=== PATIENT | male | born 1935 | race Caucasian/White ===

== ENCOUNTER 2016-09-28 09:36 | Emergency (ER) | payer MEDICARE ==
[~2016-09-28] VITALS: Ht 177.8 cm; Wt 80.7 kg
[~2016-09-28 09:36] MED LIST: ASPI-973 PO; BETA1TAB19 PO; CARV12.5 PO; CHOL200025 PO; CLOP75TA3 PO; CYAN500 PO; FOLI0.8T PO; FUR20 PO; IPRA15SP NASAL; LOSA50TA37 PO; ROSU40TA PO
[2016-09-28 09:44] VITALS: BP 79/49; PULSE 83; RESP 27; O2SAT 96
[2016-09-28] MEDS ORDERED: 0.9% Sodium Chloride 1,000 ML IV ONE (10:03)
--- NOTE | 2016-09-28 10:33 | DRSVH ---
PROCEDURE: X-RAY CHEST ONE VIEW, PORTABLE ([id number]) INDICATIONS: 81 year-old male with shortness of breath, on antibiotics for pneumonia. TECHNIQUE: One view of the chest was acquired. COMPARISON: [facility], CR, XR CHEST 1VW (PORTABLE), 09/09/2016, 20:18. [facility], CR, XR CHEST 1VW (PORTABLE), 09/05/2016, 1:12. [facility], CR, XR CHEST 1VW (PO RTABLE), 09/04/2015, 22:17. FINDINGS: Surgical changes and devices: Patient is status post median sternotomy and right shoulder arthroplast y as before. Lungs and pleura: Trace bibasilar pleural effusions are now present. No pneumothorax. Lungs are clark r. Mediastinum: Mediastinal contours appear normal. Mild cardiomegaly is unchanged. There is aortic at herosclerosis. Bones and chest wall: No suspicious bony lesions. Overlying soft tissues appear unremarkable. IMPRESSION: Mild cardiomegaly as before. New trace bibasilar pleural effusions are of uncertain etiol ogy. Dictated by: Ridge Jimenez M.D. on 09/28/2016 at 10:31 Approved by: Ridge Jimenez M.D. on 09/28/2016 at 10:31
[2016-09-28 10:39] VITALS: BP 100/42; PULSE 81; RESP 20; O2SAT 95
[2016-09-28 10:44] LABS: BASOPHILS % (AUTO) 0.1 % (0-3); EOSINOPHILS % (AUTO) 0.1 % (0-5); MONOCYTES % (AUTO) 10.1 % (4-12); Mean Corpuscular Hemoglobin 28.7 pg (27.0-35.0); Mean Corpuscular Volume 90.4 fL (81-100); NEUTROPHILS % (AUTO) 81.1 % (40-74); Platelet Count 165 bil/L (150-400)
--- NOTE | 2016-09-28 10:49 | ED.REPORT ---
HPI-Dyspnea / Wheezing Date of Service Sep 28, 2016 ED Provider: Matt Wei DO Mr. Alcantara is a very pleasant 80-year-old male with a past medical history non -Hodgkin's lymphoma (in remission), TIA, CAD status post CABG, aortic valve replacement, HTN, HLD, recent hospitalization for bacteremia,pneumonia and encephalopathy sent to emergency department from urgent care today. Patient was seen at for SOB 2 months with symptomatic increased. Patient states he has become increasingly short of breath having to sleep sitting upright with decrease in activity tolerance. Patient hospitalized approximately [address] [facility] being discharge 09/13/2016 diagnosis of H. influenzae bacteremia, pneumonia, anemia, suspected acute on chronic systolic CHF (echo 09/05/2016 showed EF 40-45). Imaging during this hospitalization showed acute interstitial edematous pancreatitis, moderate splenomegaly of uncertain etiology, 3.6 cm abdominal aortic aneurysm and groundglass opacity suggestive of early pneumonia. He was discharged with Augmentin. Patient hospitalized at [facility] 08/28/2016 for acute encephalopathy, hypotension with fevers. At that time blood cultures were negative. Imaging showed a lesion of the right lung. Nursing Notes Stated Complaint: SHORTNESS OF BREATH Chief Complaint: Respiratory Distress Nursing Notes Reviewed: Yes Allergies: Coded Allergies: Sulfa (Sulfonamide Antibiotics) (Verified Allergy, Mild, rash, 09/10/16) Scheduled Aspirin (Aspirin) 81 Mg Tablet 81 MG PO DAILY Carvedilol (Coreg) 12.5 Mg Tablet 12.5 MG PO BID Cholecalciferol (Vitamin D3) (Vitamin D3) 2,000 Unit Tablet 2,000 UNIT PO DAILY Clopidogrel Bisulfate (Plavix) 75 Mg Tablet 75 MG PO DAILY Cyanocobalamin (Vitamin B12) 500 Mcg Tablet 1,000 MCG PO QPM Folic Acid (Folic Acid) 0.8 Mg Tablet 0.8 MG PO QPM Furosemide (Furosemide) 20 Mg Tab 20 MG PO dailyx5/days Ipratropium [place] (Ipratropium [place] 0.06% Nasal) 15 Ml [place] 2 SPRAY NASAL DAILY "2 sprays three times in the morning" Losartan Potassium (Losartan Potassium) 50 Mg Tablet 50 MG PO DAILY Rosuvastatin Calcium (Crestor) 40 Mg Tablet 40 MG PO HS Vit A/Vit C/Vit E/Zinc/Copper (Preservision Areds Tablet) 1 Each Tablet 1 EACH PO BID General Time Seen by MD: :45 Chief Complaint Congestive heart failure Past Medical History Past Medical History Aortic stenois, mitral stenosis Extranodule marginal zone lymphona, 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, being followed by oncology, diagnosed November 2014, non-malignant after biopsy in July 2015 Chronic anemia Sleep apnea Restless leg syndrome Mild MR CAD Peripheral vascular disease TIA History of atrial flutter status post at least one cardioversion, not on anticoagulation Reports: Hyperlipidemia, Hypertension Past Surgical History L5-S1 herniated disc Surgical History AAA repair-abdominal aortic aneurysmorrhaphy with aortobifemoral bypass graft, extensive left femoral atherectomy and profundoplasty with superficial femoral artery angioplasty in 2008 Bilateral shoulder surgery T aortic valve replacement 09/2015 4 vessel CABG-harvested veins from bilateral forearms and bilateral legs. Cholecystectomy in 1999 Right-sided hernia repair Reports: CABG Smoking History Former Smoker Social History Alcohol Use: Denies alcohol use Other Social History: Good social support, , Local resident Ambulatory Status Independent Review of Systems REVIEW OF SYSTEMS Constitutional: Denies Chills, Fever, Sweats, Weakness Eyes: Denies Blurred Vision, Pain, Redness, Vision Changes ENT: Denies Dysphagia, Ear Pain, Hoarseness, Nasal Congestion, Nose Discharge, Throat Pain Neck: Denies Mass, Pain, Swelling Cardiovascular: Denies Chest Pain, Edema, Irregular Heart Rate, Palpitations, Rapid Heart Rate. Endorses SOB on Exertion, SOB while laying flat Respiratory: Denies Cough, Cough with bloody sputum, endorses SOB with Exertion , Shortness of Breath. Gastrointestinal: Denies Abdominal Pain, Black tarry stools, Bright red blood in stool, Change in Appetite, Constipation, Diarrhea, Heartburn, Nausea, Vomiting Genitourinary: Denies No burning or pain with urination Musculoskeletal: Denies Ankle Pain, Back Pain, Knee Pain, Neck Pain, Shoulder Pain Skin: Reports: Denies Itching, Lesions, Rash Neurological: Denies Change in LOC, Change in Speech, Confusion, Difficulty Walking, Dizziness, Double Vision, Drooping Mouth, Incoordination, Localized Weakness, Numbness, Seizures, Somnolence, Tremors, Vertigo Endocrine: Denies Abnormal Hair Growth, Excessive Thirst, Intolerant to Cold, Intolerant to Heat, Urinating Frequently, Weight Gain Hematologic: Denies Abnormal Bleeding, Bruising Lymphatic: Denies Adenopathy. Physical Exam General: No acute distress, well-developed, well-nourished, appropriately interactive HEENT: Normocephalic, atraumatic. External ears without defect. Pupils equal, round, and reactive to light and accommodation. Pale conjunctiva, no lid lag. Oropharynx free of erythema with moist mucosa. Neck: Supple with full range of motion. No jugular venous distension. No bruits. No lymphadenopathy or thyromegaly. Cardiovascular: Regular rate and rhythm with no murmurs, rubs, or gallops appreciated Pulmonary: Clear to auscultation bilaterally with no crackles, wheezes, or rhonchi. Normal respiratory effort with no use of accessory muscles. Abdomen: Bowel tones present. Soft, nontender, nondistended. No hepatosplenomegaly or masses appreciated. Extremities: No clubbing, cyanosis, edema, or lymphadenopathy appreciated. Skin: Normal temperature, turgor, and texture; no rash, ulcers, or subcutaneous nodules appreciated. Neurological: Cranial nerves grossly intact. Normal muscle strength, tone, and bulk. Reflexes, coordination, and sensory function within normal limits. No known gait impairment. Psychiatric: Normal mood and affect. Alert and oriented to person, place, and time. Initial Vital Signs Vital Signs (First) Date Time Temp Pulse Resp B/P Pulse Ox O2 Delivery O2 Flow Rate FiO2 09/28/16 09:44 36.1 83 27 79/49 96 09/28/16 10:39 Room Air Interpretation & Diagnostics X-RAY CHEST ONE VIEW, PORTABLE IMPRESSION: Mild cardiomegaly as before. New trace bibasilar pleural effusions are of uncertain etiology. Dictated by: Ridge Jimenez M.D. on 09/28/2016 at 10:31 Lab Results Interpretation Result Diagram: 09/28/16 1030 09/28/16 1030 Test 09/28/16 10:30 White Blood Count 7.2th/mm3 (3.8-10.1) Red Blood Count 2.51mil/mm3 (4.40-5.80) Hemoglobin 7.2g/dL (13.8-17.2) Hematocrit 22.7% (41.0-50.0) Mean Corpuscular Volume 90.4fL (81-100) Mean Corpuscular Hemoglobin 28.7pg (27.0-35.0) Mean Corpuscular Hemoglobin Concent 31.7% (32.0-37.0) Red Cell Distribution Width 14.2% (12.3-15.4) Platelet Count 165bil/L (150-400) Neutrophils (%) (Auto) 81.1% (40-74) Lymphocytes (%) (Auto) 8.5% (14-46) Monocytes (%) (Auto) 10.1% (4-12) Eosinophils (%) (Auto) 0.1% (0-5) Basophils (%) (Auto) 0.1% (0-3) Sodium Level 138mEq/L (134-144) Potassium Level 4.2mEq/L (3.5-5.2) Chloride Level 104mEq/L (97-108) Carbon Dioxide Level 21mmol/L (18-29) Blood Urea Nitrogen 20mg/dL (8-27) Creatinine 1.10mg/dL (0.76-1.27) Estimat Glomerular Filtration Rate 69mL/min (>59) Glucose Level 140mg/dL (60-99) Lactic Acid Level 1.4mmol/L (0.4-2.0) Calcium Level 8.3mg/dL (8.5-10.1) Total Bilirubin 0.5mg/dL (0.0-1.2) Aspartate Amino Transf (AST/SGOT) 16U/L (0-50) Alanine Aminotransferase (ALT/SGPT) 23U/L (0-44) Alkaline Phosphatase 87U/L (25-160) Troponin T 0.020ug/L (0.0-0.011) Pro-B-Type Natriuretic Peptide 9943pg/mL (0-486) Total Protein 5.7g/dL (6.4-8.4) Albumin 2.9g/dL (3.4-5.0) ECG Interpretation ECG Interpretation: Sinus rhythm. IVCD, possible right bundle branch block, LVH with secondary repolarization abnormality. Interpreted by resident physician Re-Eval/Medical Decision Med Decision/Clinical Course Attending note: I saw and personally evaluated this patient. Shortness of breath and hypotension, this is likely multifactorial, may represent congestive heart failure associated with symptomatic anemia. No obvious infectious source however given his recent hospitalization with normal CBCs at that time 2 g of Rocephin were given after blood cultures were obtained. Patient was initially mildly hypotensive though after a small fluid bolus and initiation of a blood transfusion in the ER and this has normalized. He will be transferred due to bed capacity. On arrival patient was hypotensive with a blood pressure, at one point mid 79/ 49 With 1 L fluid resuscitation and blood pressure did rise to 100/42. Chest x-ray showed cardiomegaly as seen in previous imaging as well as new trace bibasilar pleural effusions are of uncertain etiology. BMP had raised to 10,000 from a value 2 weeks ago of 4000. An patient's H&H was 7.2/22.7. Stool guaiac was negative. Patient typed and crossed, at time of dictation Pt receiving first unit of blood. Patient's white counts unremarkable and he remained afebrile though there is still concern for pneumonia and/or bacteremia as he has a very recent history. He did complete his antibiotic course as an outpatient. Lactic acid within normal limits, procalcitonin pending at time of dictation. Blood cultures pending, Pt received ceftriaxone in ED. Last echo from 09/05/2016 showed EF of 40-45%. Throughout ED visit patient remained asymptomatic. Sleeping peacefully. Hemodynamically he remained stable with an MAP remaining above 65 after 1 L fluid administered. Patient admitted request for telemetry monitoring overnight secondary to acute CHF exacerbation with anemia of unknown cause, admitting physician Dr. Mcneal declines admission at this time secondary to no available PCC beds at [facility] Re-Evaluation/Progress : )( Re-Eval Resp / Chest: Breath sounds normal, No wheezing Discharge & Departure Impression: Primary Impression: Congestive heart failure Additional Impression: Symptomatic anemia Disposition: Transfer, Acute Care Facility Discharge Condition All VS Reviewed: Yes Condition: Stable Referrals: NOPCP (PCP) Crit Care Except Billable Proc Time Spent: 30-74 minutes Services Performed: Patient management by me, Time spent at bedside, Reviewing test results Critical Care Notes: See MDM, ED transfusion SIRISHA DAVIS DO Sep 28, 2016 10:31 Matt Wei DO Sep 28, 2016 14:16
[2016-09-28 11:07] LABS: TROPONIN T 0.02 ug/L (0.0-0.011)
[2016-09-28 12:47] VITALS: BP 102/44; PULSE 72; O2SAT 97
[2016-09-28] MEDS ORDERED: 0.9% Sodium Chloride 500 ML ONE (12:56)
[2016-09-28] MEDS ORDERED: cefTRIAXone Inj 2,000 MG in IV Premix 1 EACH IV ONE (13:05)
[2016-09-28 14:18] VITALS: BP 121/55; PULSE 77; RESP 17; O2SAT 100
[2016-09-28 14:40] VITALS: BP 121/55; PULSE 77; RESP 17; O2SAT 100
== END 2016-09-28 15:53 | disposition short-term general hospital (02) ==
LOC: SED 09:36 → EDBD 09:36 → SED 14:40
DX: I11.0 Hypertensive heart disease with heart failure (principal); I50.9 Heart failure, unspecified; D64.9 Anemia, unspecified; I25.10 Atherosclerotic heart disease of native coronary artery without angina pectoris; E78.5 Hyperlipidemia, unspecified; Z86.73 Personal history of transient ischemic attack (TIA), and cerebral infarction without residual deficits; Z95.1 Presence of aortocoronary bypass graft; Z95.4 Presence of other heart-valve replacement; Z79.82 Long term (current) use of aspirin; Z87.891 Personal history of nicotine dependence; Z88.2 Allergy status to sulfonamides
CPT/HCPCS: 36415; 36430; 71010; 80053; 82308; 83605; 83880; 84484; 85025; 86922; 87040; 93005; 96360; 96361; 99291; G0463; J7030; P9021

== ENCOUNTER 2016-10-02 03:47 | Inpatient (IN) | payer MEDICARE ==
[2016-10-02] VITALS (7 sets, daily range): BP systolic 133–167; BP diastolic 68–81; PULSE 82–105; RESP 16–21; O2SAT 96–99
[~2016-10-02] VITALS: Ht 177.8 cm; Wt 82.5 kg
--- NOTE | 2016-10-02 04:14 | ED.REPORT ---
HPI-Dyspnea / Wheezing Date of Service Oct 02, 2016 ED Provider: Andres Orona MD A 81 year old male with an extensive medical history including hypertension, chronic anemia, CAD, peripheral vascular disease, TIA, atrial flutter, and CHF s /p AAA and CABG presents to the ED with intermittent shortness of breath onset five weeks ago. This is exacerbated by exertion. Tonight, the patient's symptoms worsened two hours prior to arrival, waking him up. He denies abdominal pain or hematochezia. The patient has had previous evaluations for these symptoms, including 3x in the ED in the past month, most recently 09/28/15 resulting in admission. Nursing Notes Stated Complaint: SHORTNESS OF BREATH Chief Complaint: Respiratory Distress Nursing Notes Reviewed: Yes Allergies: Coded Allergies: Sulfa (Sulfonamide Antibiotics) (Verified Allergy, Mild, rash, 09/10/16) Scheduled Aspirin (Aspirin) 81 Mg Tablet 81 MG PO DAILY Carvedilol (Coreg) 12.5 Mg Tablet 12.5 MG PO BID Cholecalciferol (Vitamin D3) (Vitamin D3) 2,000 Unit Tablet 2,000 UNIT PO DAILY Clopidogrel Bisulfate (Plavix) 75 Mg Tablet 75 MG PO DAILY Cyanocobalamin (Vitamin B12) 500 Mcg Tablet 1,000 MCG PO QPM Folic Acid (Folic Acid) 0.8 Mg Tablet 0.8 MG PO QPM Furosemide (Furosemide) 20 Mg Tab 20 MG PO dailyx5/days Ipratropium Winn (Ipratropium [place] 0.06% Nasal) 15 Ml [place] 2 SPRAY NASAL DAILY "2 sprays three times in the morning" Losartan Potassium (Losartan Potassium) 50 Mg Tablet 50 MG PO DAILY Rosuvastatin Calcium (Crestor) 40 Mg Tablet 40 MG PO HS Vit A/Vit C/Vit E/Zinc/Copper (Preservision Areds Tablet) 1 Each Tablet 1 EACH PO BID General Time Seen by MD: 03:57 Chief Complaint Shortness of breath Hx Obtained From: Patient Arrived By: Walk-in Sudden in Onset?: Yes Onset Occurred: More than a week ago... (5 weeks) Symptom Duration: Intermittent Location: : None Severity: Current: No pain currently Severity: Maximum: No pain Associated with: Denies: Fever, Vomiting Pertinent Negative: Relieved by nothing Context Related History: Reports: Congestive heart failure, Coronary artery disease Recent Healthcare: Recent doctor visit Similar Sx Previous: Yes Past Medical History Past Medical History Aortic stenois, mitral stenosis Extranodule marginal zone lymphona, 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, being followed by oncology, diagnosed November 2014, non-malignant after biopsy in July 2015 Chronic anemia Sleep apnea Restless leg syndrome Mild MR CAD Peripheral vascular disease TIA History of atrial flutter status post at least one cardioversion, not on anticoagulation CHF Reports: Hyperlipidemia, Hypertension Past Surgical History L5-S1 herniated disc Surgical History AAA repair-abdominal aortic aneurysmorrhaphy with aortobifemoral bypass graft, extensive left femoral atherectomy and profundoplasty with superficial femoral artery angioplasty in 2008 Bilateral shoulder surgery T aortic valve replacement 09/2015 4 vessel CABG-harvested veins from bilateral forearms and bilateral legs. Cholecystectomy in 1999 Right-sided hernia repair Reports: CABG Smoking History Former Smoker Social History Alcohol Use: Denies alcohol use Other Social History: Good social support, , Local resident Ambulatory Status Independent Review of Systems Constitutional: Denies: Fever Respiratory: Reports: Shortness of breath Complete sys rev & neg: except as marked. GI: Denies: Abdominal pain, Hematochezia Physical Exam Initial Vital Signs Vital Signs (First) Date Time Temp Pulse Resp B/P Pulse Ox O2 Delivery O2 Flow Rate FiO2 10/02/16 03:53 36.7 105 21 167/81 99 Room Air Initial VS: Reviewed, Vital signs abnormal Head / Eyes: Atraumatic, Normocephalic ENT: Conjunctiva normal, No scleral icterus Skin: Warm, Dry, No cyanosis Neurologic: Alert, Oriented, Nonfocal Psychiatric: Mood/affect normal, Behavior normal, Normal thought content General/Constitutional: Awake, Alert Neck: Supple, Full range of motion, No JVD Respiratory / Chest: Breath sounds = bilat, No wheezing Resp Distress / Stridor: Positive: Resp distress mild Rales / Rhonchi: Positive: Rales L base, Rales R base Tachypnea Cardiovascular: Heart rate NL, Regular rhythm, Heart sounds NL Lower Ext Edema: Positive: Left 1+ Trace edema right lower extremity Abdomen: Soft, Non-tender Interpretation & Diagnostics Lab Results Interpretation Result Diagram: 10/02/16 0440 10/02/16 0440 Test 10/02/16 04:40 White Blood Count 6.2th/mm3 (3.8-10.1) Red Blood Count 3.74mil/mm3 (4.40-5.80) Hemoglobin 10.7g/dL (13.8-17.2) Hematocrit 32.5% (41.0-50.0) Mean Corpuscular Volume 86.9fL (81-100) Mean Corpuscular Hemoglobin 28.6pg (27.0-35.0) Mean Corpuscular Hemoglobin Concent 32.9% (32.0-37.0) Red Cell Distribution Width 14.6% (12.3-15.4) Platelet Count 177bil/L (150-400) Neutrophils (%) (Auto) 85.0% (40-74) Lymphocytes (%) (Auto) 6.7% (14-46) Monocytes (%) (Auto) 6.3% (4-12) Eosinophils (%) (Auto) 1.8% (0-5) Basophils (%) (Auto) 0% (0-3) D-Dimer 4.3mg/L (<0.50) Sodium Level 140mEq/L (134-144) Potassium Level 4.4mEq/L (3.5-5.2) Chloride Level 102mEq/L (97-108) Carbon Dioxide Level 23mmol/L (18-29) Blood Urea Nitrogen 17mg/dL (8-27) Creatinine 0.75mg/dL (0.76-1.27) Estimat Glomerular Filtration Rate 107mL/min (>59) Glucose Level 130mg/dL (60-99) Calcium Level 8.4mg/dL (8.5-10.1) Magnesium Level 1.6mg/dL (1.6-2.6) Total Bilirubin 0.5mg/dL (0.0-1.2) Aspartate Amino Transf (AST/SGOT) 38U/L (0-50) Alanine Aminotransferase (ALT/SGPT) 52U/L (0-44) Alkaline Phosphatase 90U/L (25-160) Troponin T 0.010ug/L (0.0-0.011) Pro-B-Type Natriuretic Peptide 4955pg/mL (0-486) Total Protein 5.9g/dL (6.4-8.4) Albumin 2.9g/dL (3.4-5.0) Hold Helms Top Tube Received (Received) Lab Results Interpretation: Elevated d-dimer ECG Interpretation ECG Interpretation: Sinus tachycardia rate 94 Atrial premature complexes LBBB Time: 04:38 Interpreted by: ED physician X-Ray Chest Interpretation Chest Xray Interpretation: Increased vascular markings Otherwise normal View: Portable, 1 view Interpretation / Wet Read by: Trina read ED physician Re-Eval/Medical Decision Med Decision/Clinical Course 81-year-old male who has had a fairly complicated cardiac and pulmonary course over the last couple months, presents now with shortness of breath with any activity. Chest x-ray was nonrevealing with a questionable increased density left upper lobe. Labs were unremarkable with the exception of an elevated d- dimer. Chest CT scan PE angiogram was ordered and will be followed up by Dr. Cande Caal who is assuming his care. Source of Hx: Old records Re-Evaluation/Progress : Time of Eval: 06:06 Patient Status: Condition improved Re-Evaluation/Progress Note: Discussed with patient diagnosis and plan for transfer of care to Dr. Wei. Patient agrees with plan for care and all questions were addressed. Counseled Regarding: Diagnosis Discharge & Departure Shift Change Sign-Out Patient Care Transferred: Yes ((Dr. Wei)) Discussed Complaint(s): Yes Laboratory Evaluation: Ordered, not yet done Imaging Studies: Ordered, not yet done Response to Therapy: Improved Impression: Primary Impression: Dyspnea Dyspnea type: shortness of breath Qualified Code: R06.02 - Shortness of breath Discharge Condition All VS Reviewed: Yes Condition: Stable Referrals: NOPCP (PCP) Joshua Ramsay MD Care Transferred to: Dr. Wei Care Transferred at: 06:05 Scribe Attestation Portions of this note were transcribed by Savanna Berg. I, Dr. Orona, personally performed the history, physical exam, and medical decision-making; I reviewed and confirmed the accuracy of the information in the transcribed note. Signed by: Rg Borrego, 10/02/2016, 05:55 copies to: Joshua Ramsay MD, Howard L MD Oct 02, 2016 04:14 SAVANNA BERG Oct 02, 2016 04:23
[2016-10-02 05:10] LABS: BASOPHILS % (AUTO) 0 % (0-3); EOSINOPHILS % (AUTO) 1.8 % (0-5); MONOCYTES % (AUTO) 6.3 % (4-12); Mean Corpuscular Hemoglobin 28.6 pg (27.0-35.0); Mean Corpuscular Volume 86.9 fL (81-100); Platelet Count 177 bil/L (150-400)
[2016-10-02 05:33] LABS: TROPONIN T 0.01 ug/L (0.0-0.011)
[2016-10-02 05:44] LABS: Magnesium 1.6 mg/dL (1.6-2.6)
[2016-10-02] MEDS ORDERED: Piperacillin-Tazo 3.375 Gm Inj 3.375 GM in Dextrose 5% Minibag Plus 50 ML IV ONE (06:20)
[2016-10-02] MEDS ORDERED: levoFLOXacin Inj 750 MG in IV Premix 1 EACH IV ONE (06:20)
[2016-10-02] MEDS ORDERED: Alum-Mag Hydrox-Simeth 30 mL Suspension PO PRN ×3 (06:40→12:35)
[2016-10-02] MEDS ORDERED: Ondansetron 2 mg/mL 2 mL Inj IVPUSH PRN ×2 (06:40→10:35)
--- NOTE | 2016-10-02 07:50 | NUR ---
Admission Pt arrived on [facility] to 3027, A/Ox3, RA, No complains of increased pain at this time. Pt is able to transfer self from stretcher to bed. Oriented to , call light and visiting hours, Call light with in reach, will continue to monitor.
--- NOTE | 2016-10-02 08:09 | DRSVH ---
PROCEDURE: X-RAY CHEST ONE VIEW, PORTABLE ([id number]) INDICATIONS: dyspnea, bibasilar rales TECHNIQUE: One view of the chest was acquired. COMPARISON: 09/28/2016 FINDINGS: Surgical changes and devices: Median sternotomy. AVR. Right shoulder arthroplasty.. Lungs and pleura: Slight blunting of the costophrenic angles laterally appear unchanged, still compat ible with small pleural effusions, no pneumothorax. Lungs show an ill-defined area of infiltrate in the left perihilar region. Probable vertical scarring in the left infrahilar region. Faint density ov erlying the right second anterior rib is unchanged. Mediastinum: Mediastinal contours appear normal. Heart size is normal. Aorta is calcified and tort uous. Bones and chest wall: No suspicious bony lesions. Overlying soft tissues appear unremarkable. IMPRESSION: 1. Probable lingular pneumonia. 2. Postoperative changes. 3. Mild bilateral pleural thickening or small effusions, unchanged. Dictated by: Nolan Jules M.D. on 10/02/2016 at 8:07 Approved by: Nolan Juels M.D. on 10/02/2016 at 8:07
[2016-10-02] MEDS ORDERED: Vancomycin Dose per Pharmacist XX SCH (08:30)
--- NOTE | 2016-10-02 09:42 | DRSVH ---
PROCEDURE: CT ANGIO CHEST PULMONARY EMBOLISM ([id number]) INDICATIONS: short of breath elevated dimer TECHNIQUE: After the administration of intravenous contrast, 2 mm thick sections acquired from the pulmonary api cathi to the posterior costophrenic angles. 3-dimensional maximum intensity projection (MIP) coronal a nd sagittal reformats were then acquired through the thorax. For radiation dose reduction, the follo wing was used: automated exposure control, adjustment of mA and/or kV according to patient size. COMPARISON: [facility], CT, CT ANGIO CHEST PE, 09/05/2016, 3:09. FINDINGS: Image quality: Excellent. Pulmonary arteries: Pulmonary arteries are normal in size, and demonstrate no intraluminal filling d efects to suggest central pulmonary embolism. Lungs and pleura: Patchy air space opacities are present within the bilateral upper lungs, more confl uent on the left. There are small low-density pleural effusions and compressive atelectasis, slightly greater on the right. These are new when compared with the study dated 09/05/16. Mediastinum: Heart size is normal, without pericardial effusion. No mediastinal or hilar adenopathy . Thoracic aorta is normal in caliber and enhancement. Scattered atheromatous calcifications are pre sent within the aortic arch. Esophagus is normal in caliber, without hiatal hernia. Bones and chest wall: No suspicious bony lesions. Right shoulder arthroplasty is grossly intact. Rib s and thoracic spine appear intact throughout. Thyroid gland is unremarkable. No axillary or suprac lavicular adenopathy. Abdomen: Visualized upper abdominal solid organs appear normal in the early arterial phase of enhanc ement. IMPRESSION: 1. No acute pulmonary embolus. 2. Patchy upper lung airspace opacities and small pleural effusions which are new when compared with the study dated 09/05/16 and suggest acute infection or aspiration. Dictated by: Shannon Doherty M.D. on 10/02/2016 at 9:38 Approved by: Shannon Doherty M.D. on 10/02/2016 at 9:38
[2016-10-02] MEDS ORDERED: Polyethylene Glycol (PEG) 17 Gm Powder PO PRN ×2 (10:35→12:35)
[2016-10-02] MEDS ORDERED: 0.9% Sodium Chloride 250 ML ONE (10:58)
[2016-10-02] MEDS ORDERED: Albuterol-Ipratropium 3 mL Inhalation Solution NEB PRN (12:35)
[2016-10-02] MEDS: 0.9% Sodium Chloride 1,000 ML IV SCH ×3 (12:35→14:58)
[2016-10-02] MEDS: Vancomycin Dose per Pharmacist XX SCH (13:00)
[2016-10-02] MEDS ORDERED: Vancomycin Dose per Pharmacist XX ONE (13:01)
--- NOTE | 2016-10-02 14:06 | NUR ---
Evaluation completed. Please go to "Notes" then click on "Assessments and Notes" (bottom left corner of screen). Then select appropriate discipline tab on top of screen.
[2016-10-02] MEDS: Furosemide 10 mg/mL 4 mL Inj IVPUSH SCH (14:59)
--- NOTE | 2016-10-02 15:06 | PCM.CONPHA ---
Subjective Date of Service: Oct 02, 2016 Vancomycin Reason for Pharmacy Consult: Vancomycin Dosing Assessment/Plan Assessment/Plan Patient is an 81 y.o. male receiving vancomycin for HCAP. Concurrent abx include : levofloxacin and zosyn. WBC count is 6.2 and the patient is febrile. Patient is 82 kg, 70 inches tall with a SCr of 0.75 mg/dL-- estimated CrCl of ~ 93 mL/min. Based on patient parameters vancomycin will be loaded with 1500mg then dosed at 1250mg q12h with a target trough of 15-20 mcg/mL. Trough will be drawn prior to the 4th dose on 10/03 @ 2230. Pharmacy will follow daily and adjust as appropriate. Thank you for the consult in the care of this patient. Jermain Horton PharmD Oct 02, 2016 15:06
--- NOTE | 2016-10-02 15:08 | PCM.HPCARD ---
Subjective Date of service Oct 02, 2016 Primary Provider: Admitting Physician: Zak Guillermo MD Primary Care Physician: Nopjc Attending Physician: Zak Guillermo MD Admit Status: From the Emergency Department Chief Complaint: Chief Complaint: SOB History of Present Illness: The patient has a history of previous three-vessel bypass graft surgery and TAVR aortic valve replacement in addition to bifemoral bypass graft surgery for abdominal aortic aneurysm and history of lymphoma. Patient has been hospitalized or seen in the emergency room quite frequently over the past 1 month. On August 28 the patient was admitted at [facility] for acute encephalopathy with confusion and chills. He was found to have a fever up to 103. Patient had an extensive evaluation with multiple imaging modalities the head and neck demonstrating significant extracerebral and intracerebral atherosclerotic plaque but no critical blockages. The patient also was found to have a left lower pleural effusion. It was thought that his confusion could have been related to hyperperfusion from his cardiovascular medications. It has also been thought that this could have been secondary to a viral encephalopathy. Hence, his medications were restarted as an outpatient. The patient was then admitted at [facility] on September 05 for fever and confusion. Patient had elevated CRP of unclear cause an anemia and thrombocytopenia. The patient had an echocardiogram which showed moderately reduced LV ejection fraction around 40-45 % with bioprosthetic aortic valve replacement which was new in comparison to his previous echocardiogram. The gradients through the prosthetic aortic valve were within normal range and there is no obvious of valvular vegetation although this cannot be completely excluded due to limited visualization. There was also evidence for possible grade 2 LV diastolic dysfunction consistent with increased LV left ventricular end-diastolic pressures. His RV systolic pressures were estimated around 38 mmHg and the presence of moderately enlarged left atrium. The patient headache complete heart catheterization back in early August 2015 which showed severe [place] coronary disease but patent grafts. Details of the report are explained. 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 Patient's currently not on warfarin. Eventually his hospitalization in 09/05/16 revealed no evidence of definite cause for her viral illness and confusion. He was eventually discharged without any significant changes. Please note that his blood cultures were negative on the first 2 set up but eventually blood cultures were repeated just prior to discharge which are positive for Haemophilus parainfluenza he was eventually treated on a subsequent hospitalization with intravenous antibiotics. His hospitalization on 09/09/16 was complicated with possible systolic congestive heart failure. His pro BNP was noticeably increased and patient has had a chronic orthopnea over the past 1 -2 months. He has also complained of increased lower extremity edema. Apparently he was given one or 2 dosages of intravenous Lasix on September 12. He was not discharged on furosemide. He had persistent lower extremity edema after discharge and he was recently seen by Dr. Bland at our cancer clinic for his history of lymphoma. He was started on Lasix for 5 days at 20 mg once a day. Patient does not recall if he noticed any significant difference with this PND. Was also mention in Dr. Bland's note that he did not believe the patient had any evidence of recurrent non-Hodgkin's lymphoma based on a recent CT scan of the chest, abdomen, and pelvis dated back in 09/10/16. He is also had a lumbar puncture during one of these recent hospitalizations which came back negative. The patient was seen again on September 28 mention of acute CHF exacerbation by ER physician. Request for admission was made but apparently there are no beds available and patient was discharged home. The patient comes back today with intermittent episodes of shortness of breath on exertion as well as history of what sounds like PND. Patient had an angiography CT chest to rule out pulmonary embolism which was negative but showed evidence for patchy upper lung airspace opacities and small pleural effusions which were new comparison to a previous CT chest on 09/05/16. The patient's proBNP is still quite elevated around 5000. Currently the patient appears to be comfortable and is not in any acute distress. Review of Systems General: Reports: Energy (decreased) Fatigue Eyes: Reports: Problem or recent change in eyes Ears, Nose, Mouth & Throat: Reports: Any hearing loss Respiratory: Reports: Orthopnea or PND Cardiovascular: Reports: Atrial Fibrillation Denies: Chest Discomfort Gastrointestinal: Denies: Abdominal discomfort Ulcers or GI blood loss Vomiting Genitourinary: Denies: Symptoms of BPH Musculoskeletal: Denies: Joint swelling Significant joint or back problems Neurological: Reports: Any history of stroke/TIA symptoms (as per previous CT/ MRI) Psychiatric: Denies: Anxiety Endocrine: Denies: Heat or cold intolerance Integumentary: Denies: Any change in hair or nails Hematologic/Immunologic: Reports: Recent history of anemia PMH Past Medical History 1. Coronary artery disease 2. History of TIA 3. History aortic stenosis with aortic regurgitation, status post TAVR 4. Peripheral arterial disease with status post bifemoral bypass surgery secondary to AAA 5. History of non-Hodgkin's lymphoma resolved 6. Hypertension 7. Cerebrovascular disease 8. Dyslipidemia 9. History of paroxysmal atrial flutter 10. History of bilateral carotid endarterectomy Home Medications Medications prior to today: 1. Aspirin 81 mg once a day 2. Carvedilol 12.5 mg twice a day 3. Clopidogrel 75 mg was then 4. Crestor 40 mg once a day 5. Folic acid 1000 g daily excellent 6. Losartan 50 mg once a day 7. PreserVision 2 tablets daily 8. Supplements, methyl B-12 1000 g once every evening 9. Viagra 50 mg 1 tablet by oral everyday as needed approximately 1 hour before sexual activity 10. Vitamin B-12 1000 g once a day 12. Vitamin D3 2000 units capsule 1 tablet daily Allergies: Coded Allergies: Sulfa (Sulfonamide Antibiotics) (Verified Allergy, Mild, rash, 10/02/16) Social History Hx Alcohol Use: No (quit drinking Aug 2016)Hx Substance Use: NoHx Tobacco Use : Yes Smoking Status: Former Smoker Exam Vital Signs Vital Sign - Last Date Time Temp Pulse Resp B/P Pulse Ox O2 Delivery O2 Flow Rate FiO2 10/02/16 13:08 97 10/02/16 07:52 37.1 19 136/76 97 Room Air General: Pleasant Cooperative Skin: Warm & dry to touch Head: Normocephalic No tenderness Eye: EOMS intact No arcus or xanthelasma Neck: JVP elevated (9 cm) Ears, Nose & Throat: Ears no gross abnormalities Nose no gross abnormalities Chest: Other (clear to auscultation bilaterally in the mid and upper aguiar but mild crackles at the base) Cardiac: Regular rhythm Normal S1 and S2 (2/6 systolic ejection murmur) Pulses: Carotid pulse (right side decreased left-sided normal) Abdomen: Abdomen soft No bruits Extremities: Warm w/o deformities,erythema noted Edema Neurological: Alert & oriented Psychological: Affect & interaction appropriate Memory grossly intact Lab and Diagnostics Labs CBC Test 10/02/16 04:40 White Blood Count 6.2th/mm3 (3.8-10.1) Red Blood Count 3.74mil/mm3 (4.40-5.80) Hemoglobin 10.7g/dL (13.8-17.2) Hematocrit 32.5% (41.0-50.0) Mean Corpuscular Volume 86.9fL (81-100) Mean Corpuscular Hemoglobin 28.6pg (27.0-35.0) Mean Corpuscular Hemoglobin Concent 32.9% (32.0-37.0) Red Cell Distribution Width 14.6% (12.3-15.4) Platelet Count 177bil/L (150-400) Neutrophils (%) (Auto) 85.0% (40-74) Lymphocytes (%) (Auto) 6.7% (14-46) Monocytes (%) (Auto) 6.3% (4-12) Eosinophils (%) (Auto) 1.8% (0-5) Basophils (%) (Auto) 0% (0-3) CMP Test 10/02/16 04:40 Sodium Level 140mEq/L Potassium Level 4.4mEq/L Chloride Level 102mEq/L Carbon Dioxide Level 23mmol/L Blood Urea Nitrogen 17mg/dL Creatinine 0.75mg/dL Estimat Glomerular Filtration Rate 107mL/min Glucose Level 130mg/dL Calcium Level 8.4mg/dL Magnesium Level 1.6mg/dL Total Bilirubin 0.5mg/dL Aspartate Amino Transf (AST/SGOT) 38U/L Alanine Aminotransferase (ALT/SGPT) 52U/L Alkaline Phosphatase 90U/L Troponin T 0.010ug/L Pro-B-Type Natriuretic Peptide 4955pg/mL Total Protein 5.9g/dL Albumin 2.9g/dL Procalcitonin 0.77ng/mL Hold Helms Top Tube Received Result Diagram: 10/02/1643910/02/16439 X-Rays, CTs and MRIs PROCEDURE: CT ANGIO CHEST PULMONARY EMBOLISM ([id number]) INDICATIONS: short of breath elevated dimer TECHNIQUE: After the administration of intravenous contrast, 2 mm thick sections acquired from the pulmonary apices to the posterior costophrenic angles. 3-dimensional maximum intensity projection (MIP) coronal and sagittal reformats were then acquired through the thorax. For radiation dose reduction, the following was used: automated exposure control, adjustment of mA and/or kV according to patient size. COMPARISON: [facility], CT, CT ANGIO CHEST PE, 09/05/2016, 3:09. FINDINGS: Image quality: Excellent. Pulmonary arteries: Pulmonary arteries are normal in size, and demonstrate no intraluminal filling defects to suggest central pulmonary embolism. Lungs and pleura: Patchy air space opacities are present within the bilateral upper lungs, more confluent on the left. There are small low-density pleural effusions and compressive atelectasis, slightly greater on the right. These are new when compared with the study dated 09/05/16. Mediastinum: Heart size is normal, without pericardial effusion. No mediastinal or hilar adenopathy. Thoracic aorta is normal in caliber and enhancement. Scattered atheromatous calcifications are present within the aortic arch. Esophagus is normal in caliber, without hiatal hernia. Bones and chest wall: No suspicious bony lesions. Right shoulder arthroplasty is grossly intact. Ribs and thoracic spine appear intact throughout. Thyroid gland is unremarkable. No axillary or supraclavicular adenopathy. Abdomen: Visualized upper abdominal solid organs appear normal in the early arterial phase of enhancement. IMPRESSION: 1. No acute pulmonary embolus. 2. Patchy upper lung airspace opacities and small pleural effusions which are new when compared with the study dated 09/05/16 and suggest acute infection or aspiration. PROCEDURE: X-RAY CHEST ONE VIEW, PORTABLE ([id number]) INDICATIONS: dyspnea, bibasilar rales TECHNIQUE: One view of the chest was acquired. COMPARISON: 09/28/2016 FINDINGS: Surgical changes and devices: Median sternotomy. AVR. Right shoulder arthroplasty.. Lungs and pleura: Slight blunting of the costophrenic angles laterally appear unchanged, still compatible with small pleural effusions, no pneumothorax. Lungs show an ill-defined area of infiltrate in the left perihilar region. Probable vertical scarring in the left infrahilar region. Faint density overlying the right second anterior rib is unchanged. Mediastinum: Mediastinal contours appear normal. Heart size is normal. Aorta is calcified and tortuous. Bones and chest wall: No suspicious bony lesions. Overlying soft tissues appear unremarkable. IMPRESSION: 1. Probable lingular pneumonia. 2. Postoperative changes. 3. Mild bilateral pleural thickening or small effusions, unchanged 12-lead ECG Sinus rhythm with no acute ST changes. Assessment & Plan Problems: (1) Acute on chronic combined systolic (congestive) and diastolic (congestive) heart failure Plan: This unfortunate man with multiple comorbidities which makes it quite difficult to decipher the etiology of his multiple complaints. However I think that he might be having some component of increased left ventricular end- diastolic pressures or acute on chronic diastolic dysfunction. I think this is also exacerbated by his community acquired pneumonia. He was also recently positive for Haemophilus parainfluenza. He has had a one-month history of orthopnea as well as increased lower extremity edema. His echocardiogram suggests possible grade 2 LV diastolic dysfunction. Given evidence of think it be worthwhile to start him on intravenous Lasix on a daily basis and see how he responds. If he responds favorably consider starting him on oral Lasix plus or minus spironolactone. Status: Chronic ICD Code: I50.43 (2) Pneumonia due to Haemophilus influenzae Plan: Part of his shortness breath also could be contributed from his pneumonia. He is currently on broad-spectrum antibiotics which is currently being managed by the hospitalist team. Hopefully with concurrent intravenous Lasix and intravenous antibiotics his symptoms will improve over the next couple days. Status: Acute ICD Code: J14 (3) Atrial flutter Plan: Given his history of stroke and past history of atrial flutter, ideally this patient should be on warfarin or NOAC, given his history of recent severe anemia and blood transfusion, we will defer anticoagulation for now. For now just consider full dose aspirin. If his H/H remains stable then one can consider this an outpatient. Status: Chronic ICD Code: I48.92 (4) Ischemic stroke of frontal lobe Status: Resolved ICD Code: I63.9 (5) PAD (peripheral artery disease) Status: Chronic ICD Code: I73.9 (6) Coronary artery disease Qualifiers: Coronary Disease-Associated Artery/Lesion type: [place] artery [place] vs. transplanted heart: [place] heart Associated angina: without angina Qualified Code: I25.10 - Atherosclerotic heart disease of [place] coronary artery without angina pectoris Status: Chronic ICD Code: I25.10 (7) Dyslipidemia Status: Chronic ICD Code: E78.5 (8) S/P aorto-bifemoral bypass surgery Status: Chronic ICD Code: Z95.828 (9) S/p bilateral carotid endarterectomy Status: Chronic ICD Code: Z98.89 (10) Cerebrovascular disease Status: Chronic ICD Code: I67.9 (11) S/P TAVR (transcatheter aortic valve replacement) Status: Chronic ICD Code: Z95.2 (12) S/P CABG x 3 Status: Chronic ICD Code: Z95.1 Time spent 80 minutes Surya Martin MD Oct 02, 2016 15:07
[2016-10-02] MEDS: Piperacillin-Tazo 3.375 Gm Inj 3.375 GM in Dextrose 5% Minibag Plus 50 ML IV SCH (16:45)
[2016-10-02 21:06] LABS: APPEARANCE,URINE CLEAR (CLEAR,HAZY); COLOR,URINE YELLOW (YELLOW); OCCULT BLOOD,URINE MODERATE (NEGATIVE); UROBILINOGEN,URINE NORMAL (NORMAL)
--- NOTE | 2016-10-02 21:16 | PCM.HPMED ---
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 Patient reports that he was admitted to [facility] on 09/28/16 and was discharged on 09/29/16. He reports that at that time, he initially presented to [facility] but was transferred to [facility] for transfusion.Pt reports that during his hospitalization at [place], he received 4 units of blood because his anemia was so severe. He reports that last night he became short of breath in the middle of the night, he states the dyspnea woke him from sleep. Pt notes that after this he went straight to the ER. Pt denies any fevers, chills, headache, vision changes, difficulty swallowing, chest pain, nausea or vomiting, or abdominal pain. Pt also denies dysuria or hematuria.Patient denies any orthopnea, cough, sore throat or myalgias. Pt denies the use of home O2.Pt reports chronic diarrhea, and denies any change in this. Pt reports shortness of breath at rest, that is worsened by activity. Pt denies any sick contacts. CXR in ER demonstrating "Probable lingular pneumonia." and CT in ER demonstrating "Patchy upper lung airspace opacities and small pleural effusions which are new when compared with the study dated 09/05/16 and suggest acute infection or aspiration.". Pt was hypertensive and tachycardic in the ER, but afebrile . Review of Systems: Comprehensive review of systems conducted and was negative except for the pertinent positives listed in history of present illness above. Allergies Coded Allergies: Sulfa (Sulfonamide Antibiotics) (Verified Allergy, Mild, rash, 10/02/16) Home Medications Per discharge note from 09/13/2016 Discharge Medications Amoxicillin/Clav K 875-125 mg (Augmentin 875-125 mg) 1 Each Tablet 1 TABLET PO BID Prescribed by: MELLO PILLAI DO Aspirin (Aspirin) 81 Mg Tablet 81 MG PO DAILY (Reported) Carvedilol (Coreg) 12.5 Mg Tablet 12.5 MG PO BID Prescribed by: MELISSA ALEXANDER MD Cholecalciferol (Vitamin D3) (Vitamin D3) 2,000 Unit Tablet 2,000 UNIT PO DAILY (Reported) Clopidogrel Bisulfate (Plavix) 75 Mg Tablet 75 MG PO DAILY (Reported) Cyanocobalamin (Vitamin B12) 500 Mcg Tablet 1,000 MCG PO QPM (Reported) Folic Acid (Folic Acid) 0.8 Mg Tablet 0.8 MG PO QPM (Reported) Ipratropium [place] (Ipratropium [place] 0.06% Nasal) 15 Ml [place] 2 SPRAY NASAL DAILY (Reported) "2 sprays three times in the morning" Losartan Potassium (Losartan Potassium) 50 Mg Tablet 50 MG PO DAILY (Reported) Rosuvastatin Calcium (Crestor) 40 Mg Tablet 40 MG PO HS (Reported) Vit A/Vit C/Vit E/Zinc/Copper (Preservision Areds Tablet) 1 Each Tablet 1 EACH PO BID (Reported) PMH Aortic stenosis status post TAVR on 10/23/15 in [facility] MR Extranodal marginal zone lymphoma (Dr. Chandler Bland), reportedly stage IV, diagnosed 2001, reportedly now in remission since 10/2013 * Diagnosed in 2001 at which time he presented with pulmonary nodules, pleural effusions, mediastinal and retroperitoneal adenopathy. * Underwent treatment with CVP between 07/2002 and 10/2002 with mixed response * In 10/2003 he underwent second line therapy with fludarabine, mitoxantrone, and Rituxan 4 cycles * CT scan of the chest without contrast on 02/18/16 showed reduction in size of right upper lobe spiculated mass, otherwise punctate nodules in the right middle lobe and lateral aspect of the right middle lobe unchanged, resolution of effusion. 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 Cholecystectomy in 1999 Right-sided hernia repair Family History Mother hypertension Father was reportedly shot and killed at a young age Social History Hx Alcohol Use: Yes (quit drinking Aug 2016,) Hx Substance Use: No Hx Tobacco Use: Yes Smoking Status: Former Smoker Living Arrangement: with Family Exam Vital Signs Vital Sign - Last Date Time Temp Pulse Resp B/P Pulse Ox O2 Delivery O2 Flow Rate FiO2 10/02/16 07:52 37.1 99 19 136/76 97 Room Air Exam General: No acute distress, well-developed, well-nourished, appropriately interactive. Pt is laying supine without supplemental oxygen HEENT: Normocephalic, atraumatic. External ears without defect. Pupils equal, round, and reactive to light and accommodation. Anicteric sclerae, moist conjunctivae. Oropharynx with moist mucosa. Neck: Supple with full range of motion. Cardiovascular: Systolic murmur, Regular rate and rhythm Pulmonary: Clear to auscultation bilaterally with no crackles, wheezes, or rhonchi. Normal respiratory effort with no use of accessory muscles. Abdomen: Bowel tones present. Soft, nontender, nondistended. Extremities: No clubbing, cyanosis appreciated.Trace edema bilateral lower extremities. Skin: Normal temperature, turgor, and texture; no rash, ulcers, or subcutaneous nodules appreciated. Psychiatric: Normal mood and affect. Alert and oriented to person, place, and time. Lab and Diagnostics Result Diagram: 10/02/1643910/02/16439 Cardiac Echo Impressions ECHO FROM 09/05/2016 Interpretation Summary Left ventricular systolic function is moderately reduced with the ejection fraction estimated to be 40-45% with moderate global hypokinesis and severe hypokinesis to akinesis in the proximal inferior and posterior segments that is unchanged from the previous echo although overall contractility appears slightly improved. Left ventricular size is at the upper limits of normal but is somewhat smaller compared to the previous study. Assessment of diastolic parameters suggests a possible pseudonormalization pattern, consistent with elevated filling pressures. The right ventricle is normal in size and function, and is unchanged compared to the previous study. The right ventricular systolic pressure is estimated at 38 mmHg assuming a right atrial pressure of 3 mm Hg, and is likely lower compared to the previous study. The left atrium is moderately dilated and the right atrium is borderline dilated but both atria are unchanged in size since the prior echo exam. There is moderate to severe mitral annular calcification, extending into the subvalvular apparatus and onto the mitral valve leaflets, especially at the base of the anterior leaflet but it opens well and there has been no significant change since the previous study. There is no obvious vegetation seen on the mitral valve but this cannot be entirely excluded due to the dense calcification and generalized thickening of the valve leaflets. There is mild mitral regurgitation that is slightly less prominent compared to the previous study. There is a bioprosthetic aortic valve that is not well visualized but appears to be well-seated and opens well and is new compared to the previous study. The gradients through the prosthetic aortic valve are within the normal range for this type of valve suggesting normal prosthetic aortic valve function. There is no obvious aortic valvular vegetation seen although this cannot be entirely excluded because of the limited visualization of the aortic valve. No aortic regurgitation is present. There is no other significant valvular heart disease, and specifically no vegetations are seen. The ascending aorta and aortic arch are mildly enlarged but likely unchanged compared to the previous study. Assessment & Plan Worsening dyspnea of unclear etiology,present on admission, ongoing -Pt has had multiple hospitalizations over the past month, at multiple facilities' -At this time, unclear cause of the dyspnea.Possible causes include acute exacerbation of CHF due to recent transfusion of multiple units of PRBCs. Other possibility is HCAP, given his multiple admission. Pt also had recent Haemophilus parainfluenza. -We will evaluate the various causes Possible healthcare acquired pneumonia,present on admission, ongoing -Multiple hospitalizations at multiple hospitals -CXR in ER demonstrating "Probable lingular pneumonia." -CT in ER demonstrating "Patchy upper lung airspace opacities and small pleural effusions which are new when compared with the study dated 09/05/16 and suggest acute infection or aspiration." -Does not meet SIRS criteria. -Recent dx of Haemophilus parainfluenza -Vanco, Zosyn and Levaquin ordered to treat -Swallow evaluation ordered to assess for possible aspiration as cause of infection -Pending: Blood and sputum cultures, legionella, strep pneumo, Viral PCR, procalcitonin Possible acute exacerbation of chronic systolic congestive heart failure. present on admission, ongoing -Most recent ECHO done in 08/2016 -BNP elevated at 4995 -Cardiology consulted, and we appreciate their input -Lasix 40mg IV ordered Chronic anemia, present on admission, ongoing -Chronically present -Pt recently received 3 units of PRBCs at [facility] during recent hospitalization -Guiac ordered -Anticoagulation with ASA 325mg -Hold warfarin Chronic atrial flutter,present on admission, ongoing -Hx of TIA -Given anemia, anticoagulation with ASA 325mg Coronary artery disease, chronic and presumed stable -Continue home medications Hypertension, chronic and presumed stable -Continue home medications VTE Mechanical Devices: Intermittant Pneumatic CD Resuscitation Status: CPR: Attempt Resuscitation Attending Statement The patient was seen and examined together with Dr. Kramer on 10/02/2016 and I agree with the history, exam and plan as outlined in the note above. Michelle Kramer DO Oct 02, 2016 11:24 Jeramy Hodge MD Oct 03, 2016 09:25
[2016-10-03] VITALS (8 sets, daily range): BP systolic 129–144; BP diastolic 68–87; PULSE 52–102; RESP 18; O2SAT 98–99
[2016-10-03] MEDS: Piperacillin-Tazo 3.375 Gm Inj 3.375 GM in Dextrose 5% Minibag Plus 50 ML IV SCH ×3 (00:32→18:42)
[2016-10-03] MEDS: 0.9% Sodium Chloride 1,000 ML IV SCH ×3 (02:46→17:52)
[2016-10-03 07:20] LABS: BASOPHILS % (AUTO) 0.4 % (0-3); EOSINOPHILS % (AUTO) 4.5 % (0-5); MONOCYTES % (AUTO) 14.4 % (4-12); Mean Corpuscular Hemoglobin 28.3 pg (27.0-35.0); Mean Corpuscular Volume 87.2 fL (81-100); NEUTROPHILS % (AUTO) 71.4 % (40-74); Platelet Count 151 bil/L (150-400)
--- NOTE | 2016-10-03 07:39 | NUR ---
Uneventful night Pt alert and orientedx3,denies any pain/SOB/N/V/fever/chills, VSS, sleeping overnight.
[2016-10-03] MEDS: levoFLOXacin Inj 750 MG in IV Premix 1 EACH IV SCH (08:27)
[2016-10-03] MEDS: Furosemide 10 mg/mL 4 mL Inj IVPUSH SCH (08:27)
[2016-10-03] MEDS ORDERED: 0.9% Sodium Chloride 250 ML ONE (11:15)
[2016-10-03] MEDS: Vancomycin Dose per Pharmacist XX SCH (11:29)
[2016-10-03] MEDS ORDERED: KCl 40 mEq/D5W 500 mL 40 MEQ in IV Premix 1 EACH IV ONE (13:20)
--- NOTE | 2016-10-03 20:07 | PCM.PNMED ---
Subjective Date of Service Oct 03, 2016 Subjective Pt reports that he is doing well. He states that he has been walking in the halls without any associated shortness of breath. Pt denies any shortness of breath at rest or with exertion. Pt denies any chest pain, fevers, chills, myalgias. Pt denies any nausea or vomiting, and notes chronic diarrhea. Pt denies any concerns or complaints at this time. Pt reports that he is eager to go home soon. Exam Vital Signs Vital Sign - Last Date Time Temp Pulse Resp B/P Pulse Ox O2 Delivery O2 Flow Rate FiO2 10/03/16 18:41 36.6 65 18 132/68 98 Room Air Intake and Output 10/02/16 10/02/16 10/03/16 Cumulative From/Thru 15:00 23:00 07:00 10/02/16 03:53 - 10/03/16 06:39 Intake Total 1844 ml 2158 ml 4002 ml Output Total 500 ml 875 ml 1375 ml Balance 1344 ml 1283 ml 2627 ml Intake Oral 900 ml 820 ml 1720 ml IV Total 944 ml 1338 ml 2282 ml Output Urine Total 500 ml 875 ml 1375 ml # Voids 2 2 # Bowel Movements 0 0 Exam General: No acute distress, well-developed, well-nourished, appropriately interactive. Pt is laying supine without supplemental oxygen HEENT: Normocephalic, atraumatic. External ears without defect. Pupils equal, round, and reactive to light and accommodation. Anicteric sclerae, moist conjunctivae. Oropharynx with moist mucosa. Neck: Supple with full range of motion. Cardiovascular: Systolic murmur, Regular rate and rhythm Pulmonary: Clear to auscultation bilaterally with no crackles, wheezes, or rhonchi. Normal respiratory effort with no use of accessory muscles. Abdomen: Bowel tones present. Soft, nontender, nondistended. Extremities: No clubbing, cyanosis appreciated.Trace edema bilateral lower extremities. Skin: Trace to 1+ pitting edema in bilateral lower extremities. Normal temperature, turgor, and texture Psychiatric: Normal mood and affect. Alert and oriented to person, place, and time. IVs and Medications Medications Reviewed: Medications were reviewed in detail Lab and Diagnostics Result Diagram: 10/03/16 0659 10/03/1659 Cardiac Echo Impressions ECHO FROM 09/05/2016 Interpretation Summary Left ventricular systolic function is moderately reduced with the ejection fraction estimated to be 40-45% with moderate global hypokinesis and severe hypokinesis to akinesis in the proximal inferior and posterior segments that is unchanged from the previous echo although overall contractility appears slightly improved. Left ventricular size is at the upper limits of normal but is somewhat smaller compared to the previous study. Assessment of diastolic parameters suggests a possible pseudonormalization pattern, consistent with elevated filling pressures. The right ventricle is normal in size and function, and is unchanged compared to the previous study. The right ventricular systolic pressure is estimated at 38 mmHg assuming a right atrial pressure of 3 mm Hg, and is likely lower compared to the previous study. The left atrium is moderately dilated and the right atrium is borderline dilated but both atria are unchanged in size since the prior echo exam. There is moderate to severe mitral annular calcification, extending into the subvalvular apparatus and onto the mitral valve leaflets, especially at the base of the anterior leaflet but it opens well and there has been no significant change since the previous study. There is no obvious vegetation seen on the mitral valve but this cannot be entirely excluded due to the dense calcification and generalized thickening of the valve leaflets. There is mild mitral regurgitation that is slightly less prominent compared to the previous study. There is a bioprosthetic aortic valve that is not well visualized but appears to be well-seated and opens well and is new compared to the previous study. The gradients through the prosthetic aortic valve are within the normal range for this type of valve suggesting normal prosthetic aortic valve function. There is no obvious aortic valvular vegetation seen although this cannot be entirely excluded because of the limited visualization of the aortic valve. No aortic regurgitation is present. There is no other significant valvular heart disease, and specifically no vegetations are seen. The ascending aorta and aortic arch are mildly enlarged but likely unchanged compared to the previous study. Assessment & Plan Worsening dyspnea of unclear etiology,present on admission, ongoing -Pt has had multiple hospitalizations over the past month, at multiple facilities' -At this time, unclear cause of the dyspnea.Possible causes include acute exacerbation of CHF due to recent transfusion of multiple units of PRBCs. Other possibility is HCAP, given his multiple admission. Pt also had recent Haemophilus parainfluenza. -We will evaluate the various causes Possible healthcare acquired pneumonia,present on admission, ongoing -Multiple hospitalizations at multiple hospitals -CXR in ER demonstrating "Probable lingular pneumonia." -CT in ER demonstrating "Patchy upper lung airspace opacities and small pleural effusions which are new when compared with the study dated 09/05/16 and suggest acute infection or aspiration." -Does not meet SIRS criteria. -Recent dx of Haemophilus parainfluenza -Vanco, Zosyn and Levaquin, we will continue at this time. -Swallow evaluation ordered to assess for possible aspiration as cause of infection--not yet completed -Pending: sputum cultures -Blood no growth to date, legionella negative, strep pneumo negative, Viral PCRnegative -Procalcitonin 0.48 Possible acute exacerbation of chronic systolic congestive heart failure. present on admission, ongoing -Most recent ECHO done in 08/2016 -BNP elevated at 4995 -Cardiology consulted, and we appreciate their input -Lasix 40mg IV ordered daily Acute hypokalemia, not present on admission, ongoing -IV Potassium 40meq given -Recheck in AM Chronic anemia, present on admission, ongoing -Chronically present -Pt recently received 3 units of PRBCs at [facility] during recent hospitalization -Guiac ordered--not yet done -Anticoagulation with ASA 325mg -Hold warfarin Chronic atrial flutter,present on admission, ongoing -Hx of TIA -Given anemia, anticoagulation with ASA 325mg Coronary artery disease, chronic and presumed stable -Continue home medications Hypertension, chronic and presumed stable -Continue home medications VTE Mechanical Devices: Intermittant Pneumatic CD Resuscitation Status: CPR: Attempt Resuscitation Attending Statement The patient was seen and examined together with Dr. Kramer on 10/03/2016 and I agree with the history, exam and plan as outlined in the note above. Michelle Kramer DO Oct 03, 2016 20:07 Jeramy Hodge MD Oct 04, 2016 11:18
[2016-10-03] MEDS ORDERED: Vancomycin Serum Trough XX ONE (22:30)
[2016-10-04] VITALS (9 sets, daily range): BP systolic 134–146; BP diastolic 79–87; PULSE 56–92; RESP 18–20; O2SAT 96–98
[2016-10-04] MEDS: 0.9% Sodium Chloride 1,000 ML IV SCH ×2 (01:43→14:35)
[2016-10-04] MEDS: Piperacillin-Tazo 3.375 Gm Inj 3.375 GM in Dextrose 5% Minibag Plus 50 ML IV SCH ×2 (02:08→11:11)
--- NOTE | 2016-10-04 05:33 | NUR ---
Uneventful Night Pt slept most of the night getting up to urinate x2-3. Alert and oriented. Uses call light appropriately. Antibiotics infusing through the night.
[2016-10-04 06:56] LABS: BASOPHILS % (AUTO) 0 % (0-3); EOSINOPHILS % (AUTO) 5.7 % (0-5); MONOCYTES % (AUTO) 10.9 % (4-12); Mean Corpuscular Hemoglobin 28.1 pg (27.0-35.0); Mean Corpuscular Volume 87.9 fL (81-100); NEUTROPHILS % (AUTO) 72.9 % (40-74); Platelet Count 181 bil/L (150-400)
[2016-10-04] MEDS: levoFLOXacin Inj 750 MG in IV Premix 1 EACH IV SCH (08:08)
[2016-10-04] MEDS: Furosemide 10 mg/mL 4 mL Inj IVPUSH SCH (08:09)
[2016-10-04] MEDS: Vancomycin Dose per Pharmacist XX SCH (08:30)
--- NOTE | 2016-10-04 08:50 | NUR ---
CHUY signed PHIL Gonzalez
--- NOTE | 2016-10-04 10:15 | PCM.PNCARD ---
Subjective Date of service Oct 04, 2016 Chief Complaint SOB History of Present Illness Feeling much better. No orthopnea. Patient states that he has had significant increase of urine output even though his I/O doesn't reflect that. The following day after receiving his 2nd dose IV Lasix he denies any MARRUFO. He is still receiving IV abx for his pneumonia. Patient states that he is feeling much better and wants to go home. Constitutional: Denies: Chills, Fever ENT: Denies: Ear Pain Eyes: Denies: Blurred Vision Cardiovascular: Denies: Chest Pain, Edema Respiratory: Denies: Cough, SOB with Exertion, Wake up SOB Gastrointestinal: Denies: Abdominal Pain Genitourinary: Denies: No burning or pain with urination Neurological: Denies: Confusion Endocrine: Reports: Blood Glucose Review Exam Vital Signs Vital Sign - Last Date Time Temp Pulse Resp B/P Pulse Ox O2 Delivery O2 Flow Rate FiO2 10/04/16 09:46 36.5 91 20 134/87 96 Room Air Intake and Output 10/03/16 10/03/16 10/04/16 Cumulative From/Thru 15:00 23:00 07:00 10/02/16 03:53 - 10/04/16 06:40 Intake Total 1000 ml 2126 ml 7128 ml Output Total 980 ml 2355 ml Balance 20 ml 2126 ml 4773 ml Intake Oral 1000 ml 400 ml 3120 ml IV Total 1726 ml 4008 ml Output Urine Total 980 ml 2355 ml # Voids 3 5 # Bowel Movements 1 0 1 General: Pleasant Cooperative Skin: Warm & dry to touch Chest: Clear auscultation w/o rales/wheeze Cardiac: Regular rhythm Extremities: Edema (decreasing) Neurological: Alert & oriented Lab and Diagnostics Result Diagram: 10/04/16 0630 10/04/16 0630 Assessment & Plan Problems: (1) Acute on chronic combined systolic (congestive) and diastolic (congestive) heart failure Plan: Feeling much better. Patient could have been fluid overload since he responded promptly with IV diuretics. He is requiring IV K riders as well. If he goes home, I would recommend that he receives Lasix 40 mg po qd and Spirinolactone 12.5 mg once a day. No KCl hopefully will be needed with K sparing diuretic on board. Please give him 2 months supply of both medications without refills. Order BMP in 2 weeks and send copies to Dr. Ramsay. I will inform Dr. Ramsay to see when he can see him at our cardiology clinic. Continue with his other heart medications. Status: Chronic ICD Code: I50.43 (2) Pneumonia due to Haemophilus influenzae Plan: Part of his shortness breath also could be contributed from his pneumonia. He is currently on broad-spectrum antibiotics which is currently being managed by the hospitalist team. Since he is feeling much better, patient wants to go home and he hopes that he can continue with oral antibiotics as an outpatient. Status: Acute ICD Code: J14 (3) Atrial flutter Plan: Given his history of stroke and past history of atrial flutter, ideally this patient should be on warfarin or NOAC, given his history of recent severe anemia and blood transfusion, we will defer anticoagulation for now. For now just consider full dose aspirin. If his H/H remains stable then one can consider this an outpatient. Status: Chronic ICD Code: I48.92 (4) Ischemic stroke of frontal lobe Status: Resolved ICD Code: I63.9 (5) PAD (peripheral artery disease) Status: Chronic ICD Code: I73.9 (6) Coronary artery disease Qualifiers: Coronary Disease-Associated Artery/Lesion type: solomon artery [place] vs. transplanted heart: solomon heart Associated angina: without angina Qualified Code: I25.10 - Atherosclerotic heart disease of solomon coronary artery without angina pectoris Status: Chronic ICD Code: I25.10 (7) Cerebrovascular disease Status: Chronic ICD Code: I67.9 VTE Mechanical Devices: Intermittant Pneumatic CD Resuscitation Status: CPR: Attempt Resuscitation Time spent 20 minutes copies to: Joshua Ramsay MD, Oscar J MD Oct 04, 2016 10:15
--- NOTE | 2016-10-04 10:51 | NUR ---
Social Work: Initial Assessment / Readiness for d/c Data: Pt is a 81 y/o male admitted for HCAP. Pt's PCP is not listed. Pt's insurance is Medicare with [employer] supp. EMR reviewed. Pt discussed in rounds, MD states pt likely to d/c either today or tomorrow. SWITCHBOARD OPERATOR met with pt at bedside, role explained. Pt states that he lives with his spouse in a single story home where he uses no DME. Pt states he drives, has no history of HH or SNF, not LTC or VA benefits, and is not a caregiver for another. Pt reports his is a good support to contact if needed and is also his DPOA, SWITCHBOARD OPERATOR requested a copy for hospital. SWITCHBOARD OPERATOR left contact info and plan on board. No d/c planning needs identified at this time. SWITCHBOARD OPERATOR will continue to follow if needs arise. Assessment: Pt who is independent at baseline. Plan: Pt will d/c home via POV when medically stable, likely today or tomorrow. No d/c planning needs identified at this time. SWITCHBOARD OPERATOR will continue to follow if needs arise. PHIL Gonzalez Addendum: 10/04/16 at 1055 by TOMMIE PIERCE Amended: Links added.
--- NOTE | 2016-10-04 15:00 | PCM.PNMED ---
Subjective Date of Service Oct 04, 2016 Subjective Overnight: No acute events Today: States he feels better than baseline. Denies any SOB at rest or with activity. Has mobilized around halls without SOB, O2 drops. Denies CP. Tolerating po well. Would like to go home. Exam Vital Signs Vital Sign - Last Date Time Temp Pulse Resp B/P Pulse Ox O2 Delivery O2 Flow Rate FiO2 10/04/16 13:24 36.9 56 18 135/84 98 Room Air Intake and Output 10/03/16 10/03/16 10/04/16 Cumulative From/Thru 15:00 23:00 07:00 10/02/16 03:53 - 10/04/16 06:40 Intake Total 1000 ml 2126 ml 7128 ml Output Total 980 ml 2355 ml Balance 20 ml 2126 ml 4773 ml Intake Oral 1000 ml 400 ml 3120 ml IV Total 1726 ml 4008 ml Output Urine Total 980 ml 2355 ml # Voids 3 5 # Bowel Movements 1 0 1 Exam General: No acute distress, well-developed, well-nourished, appropriately interactive. Pt is laying supine without supplemental oxygen HENT: Normocephalic, atraumatic. External ears without defect. Anicteric sclerae , moist conjunctivae. Oropharynx with moist mucosa. Neck: Supple with full range of motion. Cardiovascular: III/ Systolic murmur, Regular rate and rhythm Pulmonary: Clear to auscultation bilaterally with no crackles, wheezes, or rhonchi. Normal respiratory effort with no use of accessory muscles. Abdomen: Bowel tones present. Soft, nontender, nondistended. Extremities: No clubbing, cyanosis appreciated.Resolved edema BLLE Skin: Warm and dry Psychiatric: Normal mood and affect. Alert and oriented to person, place, and time. Neuro: CNII-XII grossly intact; speech normal; facial expressions symmetric Lab and Diagnostics Result Diagram: 10/04/1662910/04/16629 Cardiac Echo Impressions ECHO FROM 09/05/2016 Interpretation Summary Left ventricular systolic function is moderately reduced with the ejection fraction estimated to be 40-45% with moderate global hypokinesis and severe hypokinesis to akinesis in the proximal inferior and posterior segments that is unchanged from the previous echo although overall contractility appears slightly improved. Left ventricular size is at the upper limits of normal but is somewhat smaller compared to the previous study. Assessment of diastolic parameters suggests a possible pseudonormalization pattern, consistent with elevated filling pressures. The right ventricle is normal in size and function, and is unchanged compared to the previous study. The right ventricular systolic pressure is estimated at 38 mmHg assuming a right atrial pressure of 3 mm Hg, and is likely lower compared to the previous study. The left atrium is moderately dilated and the right atrium is borderline dilated but both atria are unchanged in size since the prior echo exam. There is moderate to severe mitral annular calcification, extending into the subvalvular apparatus and onto the mitral valve leaflets, especially at the base of the anterior leaflet but it opens well and there has been no significant change since the previous study. There is no obvious vegetation seen on the mitral valve but this cannot be entirely excluded due to the dense calcification and generalized thickening of the valve leaflets. There is mild mitral regurgitation that is slightly less prominent compared to the previous study. There is a bioprosthetic aortic valve that is not well visualized but appears to be well-seated and opens well and is new compared to the previous study. The gradients through the prosthetic aortic valve are within the normal range for this type of valve suggesting normal prosthetic aortic valve function. There is no obvious aortic valvular vegetation seen although this cannot be entirely excluded because of the limited visualization of the aortic valve. No aortic regurgitation is present. There is no other significant valvular heart disease, and specifically no vegetations are seen. The ascending aorta and aortic arch are mildly enlarged but likely unchanged compared to the previous study. 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 Patient reports that he was admitted to [facility] on 09/28/16 and was discharged on 09/29/16. He reports that at that time, he initially presented to [facility] but was transferred to [facility] for transfusion.Pt reports that during his hospitalization at [place], he received 4 units of blood because his anemia was so severe. Of note, he was recently admitted to [facility] 09/09 for H. parainfluenzae pneumonia and septicemia. - Hospital day 3 Worsening dyspnea of unclear etiology,present on admission, Resolved -Pt has had multiple hospitalizations over the past month, at multiple facilities -At this time, unclear cause of the dyspnea, likely cardiac > infectious. Possible causes include acute exacerbation of CHF due to recent transfusion of multiple units of PRBCs. Other possibility is HCAP, given his multiple admission. Pt also had recent Haemophilus parainfluenza. Possible healthcare acquired pneumonia,present on admission, Under therapy -Multiple hospitalizations at multiple hospitals -CXR in ER demonstrating "Probable lingular pneumonia." -CT in ER demonstrating "Patchy upper lung airspace opacities and small pleural effusions which are new when compared with the study dated 09/05/16 and suggest acute infection or aspiration." -Does not meet SIRS criteria. -Recent dx of Haemophilus parainfluenza -Vanco, Zosyn and Levaquin: Now po; At DC: Levaquin 750mg daily -Swallow evaluation ordered to assess for possible aspiration as cause of infection: No signs aspiration -Blood no growth to date, legionella negative, strep pneumo negative, Viral PCR negative -Procalcitonin in am; downward trending Possible acute exacerbation of chronic systolic congestive heart failure. present on admission, Resolved -Most recent ECHO done in 08/2016 -BNP elevated at 4995 -Cardiology consulted, and we appreciate their input - Rx at DC: Lasix 40mg po daily + spironolactone 12.5mg daily - Give 2 months count; no refills - Write for BMP in 2 weeks, with FU with Dr. Ramsay Acute hypokalemia, not present on admission, ongoing -IV Potassium 40meq given -Recheck in AM - No continuation of KDur at DC; spironolactone therapy initiated Normocytic, normochromic anemia, likely chronic, present on admission, ongoing -Chronically present -Pt recently received 3 units of PRBCs at [facility] during recent hospitalization -Anticoagulation with ASA 325mg; Continue -Hold warfarin - Recommend outpatient work up; colonoscopy Chronic atrial flutter,present on admission, ongoing -Hx of TIA -Given anemia, anticoagulation with ASA 325mg Coronary artery disease, chronic and presumed stable -Continue home medications Hypertension, chronic and presumed stable -Continue home medications - PRN: Fever/antiemetic/bowel/pain - GI: None - DVT: SCDs - Diet: Heart healthy - Code: FULL CODE Dispo: Likely to DC 10/05 in am pending medical stability. Morning labs ordered , including repeat PCT, CBC, BMP. No anticipated needs at this time. Will DC with po abx. Pain Evaluation: Adequate Pain Control GI Prophylaxis: Not indicated VTE Prophylaxis: SCDs VTE Mechanical Devices: Intermittant Pneumatic CD Resuscitation Status: CPR: Attempt Resuscitation Attending Statement The patient was seen and examined together with Dr. Mcmillan on 10/04/2016 and I agree with the history, exam and plan as outlined in the note above. Ailyn Mcmillan DO Oct 04, 2016 15:00 Jeramy Hodge MD Oct 05, 2016 09:18
[2016-10-05 00:40] VITALS: BP 139/80; PULSE 82; RESP 18; O2SAT 96
[2016-10-05 05:39] VITALS: BP 145/78; PULSE 72; RESP 18; O2SAT 97
--- NOTE | 2016-10-05 05:47 | NUR ---
NOC activity Pt has been pleasant and cooperative with care. Denies chest pain, sob, n/v and abd discomfort. VSS, and has been afebrile overnight. HS meds administered as scheduled. Hourly rounding done and pt has slept most of the night.
[2016-10-05 06:10] LABS: BASOPHILS % (AUTO) 0.2 % (0-3); EOSINOPHILS % (AUTO) 7.7 % (0-5); MONOCYTES % (AUTO) 11.4 % (4-12); Mean Corpuscular Hemoglobin 28.2 pg (27.0-35.0); Mean Corpuscular Volume 87.9 fL (81-100); NEUTROPHILS % (AUTO) 66.5 % (40-74); Platelet Count 208 bil/L (150-400)
[2016-10-05 07:09] LABS: Magnesium 1.5 mg/dL (1.6-2.6); Phosphorus 3.7 mg/dL (2.5-4.9)
[2016-10-05] MEDS ORDERED: levoFLOXacin 750 mg Tablet PO SCH (07:30)
[2016-10-05 08:04] VITALS: PULSE 93; RESP 18; O2SAT 94
[2016-10-05 10:00] VITALS: BP 140/92; PULSE 91; RESP 18; O2SAT 97
--- NOTE | 2016-10-05 14:31 | PCM.DIMED ---
Mehdi Small DO 10/05/16 1431: Discharge Instructions Date of Service Oct 05, 2016 Dates of Hospitalization Oct 02, 2016 at 06:54 Discharge Diagnosis Discharge Diagnosis Worsening dyspnea of unclear etiology,present on admission, Resolved -Unclear as to exact cause of your faculty breathing, however it may be related to your recent Haemophilus parainfluenza lung infection and heart failure. Healthcare acquired pneumonia,present on admission, Under therapy -Take Levaquin 750 mg every morning for the next 5 days -Come back if you have any increased difficulty breathing, fevers, chills, excessive diarrhea, Acute exacerbation of chronic systolic congestive heart failure. present on admission, Resolved -Take Lasix 40mg 1 tablet daily + spironolactone 12.5mg half a tablet daily -Please have your blood work done in 2 weeks and follow-up with Dr. Ramsay. -Daily weights, call your primary care provider should your weight increase by more than 5 pounds within 3 days Acute hypokalemia, not present on admission, ongoing -Repeat blood work in 2 weeks as mentioned above Normocytic, normochromic anemia, likely chronic, present on admission, ongoing - You have low red blood cell count. There are many causes to this, gastrointestinal bleeding is a concern. - We recommend that you follow up with your primary care provider and schedule a colonoscopy in the very near future - Stop taking your warfarin - Called her primary care provider or come in to the ED should you notice increasing lightheadedness, or dizziness, or dark tarry stool Chronic atrial flutter,present on admission, ongoing -Continue to take your Aspirin 325mg daily and your Plavix 75 mg pill qd Coronary artery disease, chronic and presumed stable -Continue taking your Crestor 40 mg pill every night. Hypertension, chronic and presumed stable -Continue to take your Crestor Medication Instructions Please see the above instructions Diet Heart Healthy Activity No restrictions Call your provider Fever or Chills, Shortness of breath, Bleeding, Chest pain, Excessive diarrhea Patient Instructions Follow-up with PCP in: 1 week (Please follow -up with Dr. Brady Hernandez) Provider: Joshua Ramsay MD Follow-up in: 2 weeks Jeramy Hodge MD 10/06/16 1003: Mehdi Small DO Oct 05, 2016 14:31 Jeramy Hodge MD Oct 06, 2016 10:03
[2016-10-05] MEDS ORDERED: LEVO750T9 PO (14:41)
[2016-10-05] MEDS ORDERED: SPIR25TA PO (14:41)
[2016-10-05] MEDS ORDERED: FURO40TA4 PO (14:41)
--- NOTE | 2016-10-05 15:32 | NUR ---
Discharge Patient discharge to home with all belongings at 1527. Explained to patient new medications (furosemide, Aldactone, and levofloxacin), when next medications are due and discharge instructions. Dc'd IV intact. Vitals stable. Patient left floor via wheelchair accompanied by ENGINE MAINTENANCE MECHANIC to meet downstairs with no sings of distress.
--- NOTE | 2016-10-05 15:37 | NUR ---
Social Work-discharge: Data:EMR Reviewed. Pt is ready for discharge home today. PT has cleared pt for home no needs. Pt's to provide transport home today. Pt and agreeable to plan. Assessment:Pt who is independent at baseline. Plan:Pt to discharge home today via POV. No discharge needs identified. All updated and agreeable to plan. PHIL Mijares
--- NOTE | 2016-10-05 15:49 | PCM.DC.MED ---
Discharge Summary Date of Service Oct 05, 2016 Dates of Hospitalization Date of Hospital Admission Oct 02, 2016 at 06:54 Date of Discharge: Oct 05, 2016 Providers: Admitting Physician: Zak Guillermo MD Primary Care Physician: Christy Attending Physician: Zak Guillermo MD Diagnosis at Time of Discharge Diagnosis at Time of Discharge Worsening dyspnea of unclear etiology,present on admission, Resolved -Unclear as to exact cause of your faculty breathing, however it may be related to your recent Haemophilus parainfluenza lung infection and heart failure. Healthcare acquired pneumonia,present on admission, Under therapy -Take Levaquin 750 mg every morning for the next 5 days -Come back if you have any increased difficulty breathing, fevers, chills, excessive diarrhea, Acute exacerbation of chronic systolic congestive heart failure. present on admission, Resolved -Take Lasix 40mg 1 tablet daily + spironolactone 12.5mg half a tablet daily -Please have your blood work done in 2 weeks and follow-up with Dr. Ramsay. -Daily weights, call your primary care provider should your weight increase by more than 5 pounds within 3 days Acute hypokalemia, not present on admission, ongoing -Repeat blood work in 2 weeks as mentioned above Normocytic, normochromic anemia, likely chronic, present on admission, ongoing - You have low red blood cell count. There are many causes to this, gastrointestinal bleeding is a concern. - We recommend that you follow up with your primary care provider and schedule a colonoscopy in the very near future - Stop taking your warfarin - Called her primary care provider or come in to the ED should you notice increasing lightheadedness, or dizziness, or dark tarry stool Chronic atrial flutter,present on admission, ongoing -Continue to take your Aspirin 325mg daily and your Plavix 75 mg pill qd Coronary artery disease, chronic and presumed stable -Continue taking your Crestor 40 mg pill every night. Hypertension, chronic and presumed stable -Continue to take your Crestor Procedures XRay, CTs & MRIs PROCEDURE: CT ANGIO CHEST PULMONARY EMBOLISM ([id number]) INDICATIONS: short of breath elevated dimer IMPRESSION: 1. No acute pulmonary embolus. 2. Patchy upper lung airspace opacities and small pleural effusions which are new when compared with the study dated 09/05/16 and suggest acute infection or aspiration. Dictated by: Shannon Doherty M.D. on 10/02/2016 at 9:38 Cardiac Echo Impression ECHO FROM 09/05/2016 Interpretation Summary Left ventricular systolic function is moderately reduced with the ejection fraction estimated to be 40-45% with moderate global hypokinesis and severe hypokinesis to akinesis in the proximal inferior and posterior segments that is unchanged from the previous echo although overall contractility appears slightly improved. Left ventricular size is at the upper limits of normal but is somewhat smaller compared to the previous study. Assessment of diastolic parameters suggests a possible pseudonormalization pattern, consistent with elevated filling pressures. The right ventricle is normal in size and function, and is unchanged compared to the previous study. The right ventricular systolic pressure is estimated at 38 mmHg assuming a right atrial pressure of 3 mm Hg, and is likely lower compared to the previous study. The left atrium is moderately dilated and the right atrium is borderline dilated but both atria are unchanged in size since the prior echo exam. There is moderate to severe mitral annular calcification, extending into the subvalvular apparatus and onto the mitral valve leaflets, especially at the base of the anterior leaflet but it opens well and there has been no significant change since the previous study. There is no obvious vegetation seen on the mitral valve but this cannot be entirely excluded due to the dense calcification and generalized thickening of the valve leaflets. There is mild mitral regurgitation that is slightly less prominent compared to the previous study. There is a bioprosthetic aortic valve that is not well visualized but appears to be well-seated and opens well and is new compared to the previous study. The gradients through the prosthetic aortic valve are within the normal range for this type of valve suggesting normal prosthetic aortic valve function. There is no obvious aortic valvular vegetation seen although this cannot be entirely excluded because of the limited visualization of the aortic valve. No aortic regurgitation is present. There is no other significant valvular heart disease, and specifically no vegetations are seen. The ascending aorta and aortic arch are mildly enlarged but likely unchanged compared to the previous study. Other Diagnostics Labs on 10/05/2016 prior to discharge WBC 4.3, Hgb 9.6, HCT 29.9, platelet 208, MCV 87.9. Na 145, K3.6, CL 106, CO2 26, BUN 11, creatinine 0.78, glucose 115 Brief History Feeling much better. No orthopnea. Patient states that he has had significant increase of urine output even though his I/O doesn't reflect that. The following day after receiving his 2nd dose IV Lasix he denies any MARRUFO. He is still receiving IV abx for his pneumonia. Patient states that he is feeling much better and wants to go home. Hospital Course 80yom with MHx significant for CAD s/p 3 vessel CABG, status post TAVR, CHF, hypertension, hyperlipidemia, and recently hospitalized one separate occasions for anemia and Haemophilus parainfluenza presented to the ED-[facility] with shortness of breath patient. Chest x-ray and CT angiogram suggestive of a developing pneumonia. Couple with an elevated BNP, patient was admitted for hospital-acquired pneumonia and CHF exacerbation. Shortness of breath improved with diuresis and continue antibiotics. Worsening dyspnea of unclear etiology,present on admission, Resolved -Hx of multiple hospitalizations at multiple facilities in the past months -Likely multifactorial: cardiac given recent PRBCx4 transfusion, deconditioned from recent Haemophilus parainfluenza pneumonia, possible new HCAP -SOB improved with Levaquin and Lasix -Patient walks laps around the medical floor unit without shortness of breath prior to discharge Possible healthcare acquired pneumonia,present on admission, Under therapy -Multiple hospitalizations at multiple hospitals, recently diagnosed with Haemophilus parainfluenza -Imaging show probable pneumonia, with pro-calcitonin initially elevated at 0.77 , no signs of aspiration per speech eval -Blood culture, respiratory viral PCR, urine Legionella and strep pneumo all unremarkable. -De-escalate to Levaquin 750 mg daily for the next 5 days post discharge. Patient initially received vancomycin, Levaquin, and Zosyn -Pro-calcitonin 0.23 at discharge Possible acute exacerbation of chronic systolic congestive heart failure. present on admission, Resolved -BNP elevated at 4995 -Most recent ECHO done in 08/2016 showed EF of 40-45% with akinesis in the proximal inferior and posterior segment wall unchanged from prior study - Lasix 40mg po daily + spironolactone 12.5mg daily - BMP written in 2 weeks, with FU with Dr. Ramsay Normocytic, normochromic anemia, likely chronic, present on admission, ongoing -Pt recently received 3 units of PRBCs at [facility] during recent hospitalization - Etiology uncertain possibly GI related - Anticoagulated with only Plavix and aspirin. DC warfarin - Recommend GI follow-up, perhaps colonoscopy Acute hypokalemia, not present on admission, ongoing - KDur at DC - Spironolactone therapy initiated - BMP as above Chronic atrial flutter,present on admission, ongoing -Hx of TIA -In the setting of unknown anemia, we will continue with antiplatelet therapy only Coronary artery disease, chronic and presumed stable -Continue home medications Hypertension, chronic and presumed stable -Continue home medications Exam Vital Signs (Last) Date Time Temp Pulse Resp B/P Pulse Ox O2 Delivery O2 Flow Rate FiO2 10/05/16 10:00 36.5 91 18 140/92 97 Room Air Exam General: No acute distress, lying flat in bed HENT: Normocephalic, atraumatic. Anicteric sclerae, moist conjunctivae. Neck: Supple with full range of motion. Cardiovascular: III/ Systolic murmur, Regular rate and rhythm Pulmonary: Clear to auscultation bilaterally with no crackles, wheezes, or rhonchi. Normal respiratory effort with no use of accessory muscles. Abdomen: Bowel tones present. Soft, nontender, nondistended. Extremities: No clubbing, cyanosis appreciated.Resolved edema BLLE Skin: Warm and dry Psychiatric: Normal mood and affect. Alert and oriented to person, place, and time. Neuro: CNII-XII grossly intact; speech normal; facial expressions symmetric Test 10/02/16 04:40 10/02/16 20:45 10/03/16 22:55 10/04/16 06:30 D-Dimer 4.3mg/L (<0.50) Hemoglobin A1c 5.8% (4.8-5.6) Troponin T 0.010ug/L (0.0-0.011) Pro-B-Type Natriuretic Peptide 4955pg/mL (0-486) Hold Helms Top Tube Received (Received) Urine Color Yellow (YELLOW) Urine Appearance Clear (CLEAR,HAZY) Urine pH 6.0 (5.0-8.0) Urine Specific [place] 1.010 (1.003-1.035) Urine Protein Negativemg/dL (NEG,TRACE) Urine Glucose (UA) Negativemg/dL (NEGATIVE) Urine Ketones Negativemg/dL (NEGATIVE) Urine Occult Blood Moderate (NEGATIVE) Urine Nitrite Negative (NEGATIVE) Urine Bilirubin Negative (NEGATIVE) Urine Urobilinogen Normalmg/dL (NORMAL) Urine Leukocyte Esterase Negative (NEGATIVE) Urine RBC 3-10/hpf (0-2) Urine WBC 0-5/hpf (0-5) Urine Epithelial Cells Few/hpf (NONE-MOD) Urine Crystals None seen (NONE SEEN) Urine Bacteria Few/hpf (NONE-FEW) Urine Hyaline Casts None/lpf (NONE) Urine Granular Casts None seen (NONE SEEN) Urine Waxy Casts None seen (NONE SEEN) Urine Red Blood Cell Casts None seen (NONE SEEN) Urine White Blood Cell Casts None seen (NONE SEEN) Urine Mucus None seen (None Seen) Urine Trichomonas None seen (NONE SEEN) Urine Yeast None (NONE SEEN) Urinalysis Comment None Urine Culture Reflexed Not indicated Urine Legionella pneumophilia Ag Negative (Negative) Vancomycin Level Trough 12.3mcg/mL Total Bilirubin 0.3mg/dL (0.0-1.2) Aspartate Amino Transf (AST/SGOT) 22U/L (0-50) Alanine Aminotransferase (ALT/SGPT) 35U/L (0-44) Alkaline Phosphatase 74U/L (25-160) Total Protein 4.5g/dL (6.4-8.4) Albumin 2.5g/dL (3.4-5.0) Test 10/05/16 05:45 White Blood Count 4.3th/mm3 (3.8-10.1) Red Blood Count 3.40mil/mm3 (4.40-5.80) Hemoglobin 9.6g/dL (13.8-17.2) Hematocrit 29.9% (41.0-50.0) Mean Corpuscular Volume 87.9fL (81-100) Mean Corpuscular Hemoglobin 28.2pg (27.0-35.0) Mean Corpuscular Hemoglobin Concent 32.1% (32.0-37.0) Red Cell Distribution Width 14.4% (12.3-15.4) Platelet Count 208bil/L (150-400) Neutrophils (%) (Auto) 66.5% (40-74) Lymphocytes (%) (Auto) 14.0% (14-46) Monocytes (%) (Auto) 11.4% (4-12) Eosinophils (%) (Auto) 7.7% (0-5) Basophils (%) (Auto) 0.2% (0-3) Sodium Level 145mEq/L (134-144) Potassium Level 3.6mEq/L (3.5-5.2) Chloride Level 106mEq/L (97-108) Carbon Dioxide Level 26mmol/L (18-29) Blood Urea Nitrogen 11mg/dL (8-27) Creatinine 0.78mg/dL (0.76-1.27) Estimat Glomerular Filtration Rate 102mL/min (>59) Glucose Level 115mg/dL (60-99) Calcium Level 8.3mg/dL (8.5-10.1) Phosphorus Level 3.7mg/dL (2.5-4.9) Magnesium Level 1.5mg/dL (1.6-2.6) Procalcitonin 0.23ng/mL (See Comment) Discharge Medications Discharge Medications Aspirin (Aspirin) 81 Mg Tablet 81 MG PO DAILY (Reported) Carvedilol (Coreg) 12.5 Mg Tablet 12.5 MG PO BID Prescribed by: MELISSA ALEXANDER MD Cholecalciferol (Vitamin D3) (Vitamin D3) 2,000 Unit Tablet 2,000 UNIT PO DAILY (Reported) Clopidogrel Bisulfate (Plavix) 75 Mg Tablet 75 MG PO DAILY (Reported) Cyanocobalamin (Vitamin B12) 500 Mcg Tablet 1,000 MCG PO QPM (Reported) Folic Acid (Folic Acid) 0.8 Mg Tablet 0.8 MG PO QPM (Reported) Furosemide (Furosemide) 40 Mg Tablet 40 MG PO DAILY Prescribed by: JUANA MORENO DO Ipratropium Young (Ipratropium Young 0.06% Nasal) 15 Ml [place] 2 SPRAY NASAL DAILY (Reported) "2 sprays three times in the morning" Levofloxacin (Levaquin) 750 Mg Tablet 750 MG PO DAILYAC Prescribed by: JUANA MORENO DO Losartan Potassium (Losartan Potassium) 50 Mg Tablet 50 MG PO DAILY (Reported) Rosuvastatin Calcium (Crestor) 40 Mg Tablet 40 MG PO HS (Reported) Spironolactone (Aldactone) 25 Mg Tablet 12.5 MG PO DAILY Prescribed by: JUANA MORENO DO Vit A/Vit C/Vit E/Zinc/Copper (Preservision Areds Tablet) 1 Each Tablet 1 EACH PO BID (Reported) Additional med instructions Please see the above instructions Followup Plan Discharge Diet: Heart Healthy Discharge Activity: No restrictions Follow-up with PCP in: 1 week (Please follow -up with Dr. Brady Hernandez) Provider: Joshua Ramsay MD Follow-up in: 2 weeks Time spent 35 minutes Attending Statement The patient was seen and examined together with Dr. Juana Reynolds on 10/05/2016 and I agree with the history, exam and plan as outlined in the note above. copies to: Juana Craig DO Oct 05, 2016 15:49 Jeramy Hodge MD Oct 06, 2016 10:04
== END 2016-10-05 15:29 | disposition home or self-care (01) | DRG 193 ==
LOC: SED 03:47 → MPC 06:54
PROVIDERS: ADMIT Internal Medicine; ATTEND Family Medicine
DX: J18.9 Pneumonia, unspecified organism (principal); I50.43 Acute on chronic combined systolic (congestive) and diastolic (congestive) heart failure; I48.92 Unspecified atrial flutter; D64.9 Anemia, unspecified; I25.10 Atherosclerotic heart disease of native coronary artery without angina pectoris; I10 Essential (primary) hypertension; Z95.1 Presence of aortocoronary bypass graft; E78.5 Hyperlipidemia, unspecified; Z86.73 Personal history of transient ischemic attack (TIA), and cerebral infarction without residual deficits; Z87.891 Personal history of nicotine dependence; I73.9 Peripheral vascular disease, unspecified; E87.6 Hypokalemia